=== PATIENT | male | born 1965 | race Caucasian/White ===

== ENCOUNTER 2023-04-16 18:25 | Emergency (ER) | payer BC, SELFPAY ==
[2023-04-16 18:25] VITALS: BP 176/92; PULSE 95; RESP 18; TEMP 37.4; O2SAT 99
--- NOTE | 2023-04-16 18:35 | ED.EXTPRO ---
HPI - Extremity Problem General Chief complaint: Skin/Abscess/Foreign Body Stated complaint: Left Leg Pain Time Seen by Provider: 04/16/23 18:31 Source: patient Mode of arrival: ambulatory Limitations: no limitations History of Present Illness HPI Narrative: Mikael is a 58-year-old male patient presenting to the clinic today with complaints of left leg pain. He reports he was stung by a wasp yesterday and has developed swelling and itchiness to the left calf. He now has swelling extending into the entire left leg with redness and mild erythema. Related Data Home Medications Medication Instructions Recorded Confirmed atorvastatin 10 mg tablet mg 04/16/23 hydrochlorothiazide 25 mg tablet mg 04/16/23 metoprolol succinate 50 mg mg PO 04/16/23 tablet,extended release 24 hr syringe with needle 3 mL 22 x 1 04/16/23 04/16/2308/21 (BD SafetyGlide Syringe) testosterone cypionate 200 mg/mL mg 04/16/23 intramuscular oil Allergies Allergy/AdvReac Type Severity Reaction Status Date / Time No Known Allergies Allergy Unverified 10/26/11 21:38 Review of Systems Review of Systems: Pertinent positives per HPI. Patient denies any fever, chills, rash, headache, visual changes, dizziness, cough, runny nose, sore throat, shortness of breath, chest pain, palpitations, nausea, vomiting, diarrhea, constipation, abdominal pain, or any urinary issues. PMFSH Comments At the time of my signature, I reviewed and agree with the nursing past medical, surgical, social, and family history. There is no relevant family history pertinent to the patient complaint. Exam Narrative: General: Well-developed, well nourished, in no apparent distress Head: Normocephalic, atraumatic. Cardio: Regular rate and rhythm, s1 and s2 normal, no murmur appreciated. Resp: Clear to auscultation bilaterally, no rhonchi, rales, wheezing or rubs. Musculoskeletal: No deformity, itching to the left lower extremity, insect sting noted to the calf of the leg with surrounding blisters, redness, and erythema, mild tender to palpation, grossly normal range of motion, muscle strength strong and equal, peripheral pulse strong, no cyanosis, normal gait and station Course Course Emergency Course: Portions of this record may have been created with voice recognition software. Level of Care: Express Care Visit Vital Signs Vital signs: Vital signs reviewed MDM - Extremity (Nontraumatic) MDM Narrative Medical decision making narrative: At the time of visit patient is resting comfortably on exam table. I suspect patient has a allergic reaction to an insect sting to the left calf however he is concerned about a an infection. Will send in prescription for prednisone and doxycycline to the pharmacy. Supportive measures were discussed with the patient he voiced understanding discharge instructions agrees to treatment plan. Differential Diagnosis Differential diagnosis: Likely other (Insect sting, general allergic reaction, cellulitis) Discharge Plan Discharge Clinical Impression: Allergic reaction to insect sting Qualifiers: Encounter type: initial encounter Injury intent: accidental or unintentional Qualified Code(s): T63.481A - Toxic effect of venom of other arthropod, accidental (unintentional), initial encounter Patient Disposition: Home, Self-Care Condition: Stable Instructions: Antibiotic Form, Insect Bite or Sting (ED), General Allergic Reaction (ED) Additional Instructions: Take prednisone as directed Take doxycycline as prescribed Avoid hot showers May apply hydrocortisone cream to the affected area Avoid scratching and this can cause a secondary infection May take benadryl 25-50mg every 6 hours as needed for itching. Follow up with your PCP in 3-5 days if symptoms persist or sooner if they worsen Go to the Emergency Room if symptoms worsen- fever, rash spreading with treatment, shortness of breath, tongue swelling, droolin
== END 2023-04-16 18:46 | disposition home or self-care (01) ==
PROVIDERS: Emergency Provider Nurse Practitioner Family; PCP Internal Medicine
DX: T63.481A Toxic effect of venom of other arthropod, accidental (unintentional), initial encounter (principal); I10 Essential (primary) hypertension
CPT/HCPCS: 99213; G0463

== ENCOUNTER 2023-07-22 12:12 | Emergency (ER) | payer BC, SELFPAY ==
--- NOTE | ~2023-07-22 | XR_ITS ---
EXAMINATION: XR chest 2V DATE: 07/22/2023 12:47 INDICATION: Productive cough and difficulty breathing TECHNIQUE: frontal and lateral views of the chest were obtained. COMPARISON: None FINDINGS: The lungs are clear with no focal airspace opacities, pulmonary edema, pleural effusion or pneumothor ax. Mild cardiomegaly. Mild to moderate thoracic spondylosis. IMPRESSION: 1. Cardiomegaly. No acute cardiopulmonary disease. Reviewed, dictated and finalized at location A. [employer]ER
[2023-07-22 12:25] VITALS: BP 156/83; PULSE 105; RESP 20; TEMP 37.4; O2SAT 94
--- NOTE | 2023-07-22 13:03 | ED.URI ---
HPI - URI/Sore Throat General Chief Complaint: Upper Respiratory Infection Stated Complaint: cough,ear pain both ears Time Seen by Provider: 07/22/23 13:03 Source: patient Mode of arrival: ambulatory Limitations: no limitations History of Present Illness HPI Narrative: 58-year-old male presents with complaint of cough, nasal and sinus congestion, bilateral ear pain. Symptoms for 5-6 days. Saw primary care physician when cough and congestion for started. Was prescribed prednisone and Robitussin with codeine. Has been taking as prescribed. Patient also using albuterol inhaler 4 times a day. reports chest congestion and mild shortness of breath. Afebrile. States ear started hurting yesterday, is concerned for infection. All systems reviewed and negative except as noted above. Related Data Home Medications Medication Instructions Recorded Confirmed atorvastatin 10 mg tablet mg 04/16/23 hydrochlorothiazide 25 mg tablet mg 04/16/23 metoprolol succinate 50 mg mg PO 04/16/23 tablet,extended release 24 hr syringe with needle 3 mL 22 x 1 04/16/23 04/16/2308/21 (BD SafetyGlide Syringe) testosterone cypionate 200 mg/mL mg 04/16/23 intramuscular oil Allergies Allergy/AdvReac Type Severity Reaction Status Date / Time No Known Allergies Allergy Unverified 10/26/11 21:38 Review of Systems Review of Systems: CONSTITUTIONAL: Denies fever, chills, or sweats. Reports fatigue. EYES: Denies visual changes, redness, or discharge. ENT: Reports rhinorrhea, congestion, bilateral ear pain. Denies sore throat CARDIOVASCULAR: Denies chest pain, palpitations, or edema. RESPIRATORY: reports cough chest congestion. Denies dyspnea. GASTROINTESTINAL: Denies abdominal pain, nausea, vomiting, or diarrhea. GENITOURINARY: Denies dysuria or hematuria. SKIN: Denies rash or itching. MUSCULOSKELETAL: Denies back pain, joint pain, or myalgia. NEUROLOGIC: Denies headache, numbness, or weakness. PSYCHIATRIC: Denies anxiety or depression. All other systems reviewed are negative, except as documented in HPI. PMFSH Comments At time of signature, agree with nursing past medical, surgical, social and family history. There is no relevant family history pertinent to the presenting complaint. Exam Narrative: GENERAL: This is a well-nourished, well-developed patient, in no apparent distress. HEAD: normocephalic, atraumatic. EYES: PERRL. Sclera clear/white. Vision is grossly intact. EARS: External ears normal, auditory canals clear and without drainage, erythema to bilateral TMs, bulging with purulence fluid. hearing intact. NOSE: External nose normal with Moderate congestion, clear nasal drainage with erythema and swelling to bilateral nares. THROAT: Mucous membranes moist, Erythema postnasal drainage. NECK: Neck supple, non-tender without lymphadenopathy, masses or thyromegaly. CARDIOVASCULAR: Regular rate and rhythm without murmurs, gallops, or rubs. RESPIRATORY: Decreased lung sounds throughout all lung das with wheezing to upper lung das. Breath sounds equal bilaterally. No, rales, or rhonchi. SKIN: warm, Dry, intact with no suspicious lesions or rash, good texture and turgor. NEURO: awake, alert, and oriented to person, place and time. There were no obvious focal neurologic abnormalities. EXTREMITIES: No joint tenderness, effusion, or edema noted. Course Course Level of Care: Express Care Visit Reevaluation(s) Reevaluation #1: Lungs clear to auscultation after DuoNeb. Vital Signs Vital signs: Vital Signs Temperature 37.4 C 07/22/23 12:25 Pulse Rate 105 H 07/22/23 12:25 Respiratory Rate 20 07/22/23 12:25 Blood Pressure 156/83 H 07/22/23 12:25 Pulse Oximetry 94 07/22/23 12:25 Oxygen Delivery Room Air 07/22/23 12:25 Temperature 37.4 C 07/22/23 12:25 Pulse Rate 105 H 07/22/23 12:25 Respiratory Rate 20 07/22/23 12:25 Blood Pressure 156/83 H 07/22/23 12:25 Pulse Oxi
[2023-07-22] MEDS: IPRATROPIUM BR 0.02% INH SOLN 0.5 MG/2.5 ML VIAL INHALATION (13:06)
[2023-07-22] MEDS: ALBUTEROL SULFATE NEB 2.5 MG/3 ML INH INHALATION (13:07)
== END 2023-07-22 14:03 | disposition home or self-care (01) ==
PROVIDERS: Emergency Provider Nurse Practitioner Family; PCP Internal Medicine
DX: J06.9 Acute upper respiratory infection, unspecified (principal); H66.93 Otitis media, unspecified, bilateral; E78.00 Pure hypercholesterolemia, unspecified; I10 Essential (primary) hypertension
CPT/HCPCS: 71046; 94640; 99213; G0463